=== PATIENT | female | born 1980 | race Caucasian/White ===

== ENCOUNTER 2022-08-03 06:57 | Day surgery (SDC) | payer BC ==
[~2022-08-03 06:57] MED LIST: Dexamethasone 4 MG/ML 5 ML MDV ONE; Dexmedetomidine 200 MCG/2 ML SDV ONE; Ketorolac 30 MG/ML SDV ONE; Lactated Ringers 1,000 ML IV SCH; Lidocaine 1% 4 ML ONE; Lidocaine 1%/Sod Bicarbonate in NS 8.4% 1 ML Syringe IDERM PRN; Midazolam 1 MG/ML 2 ML SDV ONE; Ondansetron 4 MG/2 ML SDV ONE; Propofol 200 MG/20 ML SDV ONE; Rocuronium 50 MG/5 ML Vial ONE; Sodium Chloride 0.9% 10 ML Syringe FLUSH PRN; Sodium Chloride 0.9% 10 ML Syringe FLUSH SCH; ceFAZolin 2 GM Vial ONE; fentaNYL 100 MCG/2 ML SDV ONE
[2022-08-03] MEDS ORDERED: Bupivacaine 0.25%/EPINEPHrine 1:200,000 30 ML SDV ONE (07:25)
[2022-08-03] MEDS ORDERED: fentaNYL 100 MCG/2 ML SDV ONE (09:18)
[2022-08-03] MEDS ORDERED: Neostigmine Methylsulfate 10 MG/10 ML MDV ONE (09:19)
[2022-08-03] MEDS ORDERED: Ibuprofen 600 MG Tab PO PRN (09:33)
[2022-08-03] MEDS ORDERED: Ondansetron 4 MG/2 ML SDV IVPUSH PRN ×2 (09:33→09:52)
[2022-08-03] MEDS ORDERED: Acetaminophen/oxyCODONE 325-5 MG Tab PO PRN (09:33)
[2022-08-03] MEDS ORDERED: HYDROmorphone 0.5 MG/0.5 ML Syringe IVPUSH PRN (09:52)
[2022-08-03] MEDS ORDERED: fentaNYL 100 MCG/2 ML SDV IVPUSH PRN (09:52)
[2022-08-03 13:17] VITALS: BP 123/77; PULSE 72
== END 2022-08-03 12:55 | disposition home or self-care (01) ==
LOC: JD.SDS 06:57
PROVIDERS: ATTEND Obstetrics & Gynecology
DX: N72 Inflammatory disease of cervix uteri (principal); N80.03 Adenomyosis of the uterus; Z79.899 Other long term (current) drug therapy; Z88.1 Allergy status to other antibiotic agents; G43.909 Migraine, unspecified, not intractable, without status migrainosus
CPT/HCPCS: 36415; 58262; 80053; 81003; 81025; 85025; 86850; 86900; 86901; A9270; J0690; J1100; J1170; J1885; J2250; J2405; J2704; J2710; J3010; J7120; 00944; J3490